=== PATIENT | female | born 1985 | race African-American/Black ===

== ENCOUNTER 2016-08-12 11:18 | Emergency (ER) | payer BC, MEDICARE ==
[~2016-08-12 11:18] MED LIST: ALPR1TAB6 PO; DESV100T PO; Doxycycline Hyclate PO; ESOM20CA PO; FLUT1DIS3 INH; HYDR1TAB12 PO; IBUP200T43 PO; PRED20TA PO; PROAIR HFA8.5 GM IH
[2016-08-12] MEDS ORDERED: PREDNISONE 10 MG TABLET PO ONE (13:15)
[2016-08-12] MEDS ORDERED: IPRATRPIUM/ALBUTEROL 0.5/2.5MG 3 ML NEBU. NEB ONE (13:15)
[2016-08-12] MEDS ORDERED: BENZONATATE 100 MG CAPSULE. PO ONE (13:15)
--- NOTE | 2016-08-12 13:19 | PHYS DOC ---
Past Medical History Past Medical History: Anxiety, Depression, GERD Additional Past Medical Histor: BRAIN TUMOR, seasonal allergies Past Surgical History: Other Additional Past Surgical Histo: D & C, brain surgery Alcohol Use: None Drug Use: None Adult General Chief Complaint Chief Complaint: SHORTNESS OF BREATH [facility] HPI Patient is a 31 year old female with history of asthma, anxiety, asthma, and depression who presents with cough and shortness of breath for the last 7-10 days. Patient denies any fever. Review of Systems Review of Systems Constitutional: See history of present illness Eyes: Denies change in visual acuity, redness, or eye pain [] HENT: nasal congestion Respiratory: Shortness of breath and cough Cardiovascular: No additional information not addressed in HPI [] GI: Denies abdominal pain, nausea, vomiting, bloody stools or diarrhea [] : Denies dysuria or hematuria [] Musculoskeletal: Denies back pain or joint pain [] Integument: Denies rash or skin lesions [] Neurologic: Denies headache, focal weakness or sensory changes [] Endocrine: Denies polyuria or polydipsia [] Current Medications Current Medications Current Medications Medications (Trade) Dose Ordered Sig/Camille Start Time Stop Time Status Last Admin Dose Admin Albuterol/ Ipratropium (Duoneb) 3 ml 1X ONCE 08/12/16 13:15 08/12/16 13:16 DC 08/12/16 13:15 3 ML Benzonatate (Tessalon Perle) 100 mg 1X ONCE 08/12/16 13:15 08/12/16 13:16 DC 08/12/16 13:25 100 MG Prednisone (Prednisone) 50 mg 1X ONCE 08/12/16 13:15 08/12/16 13:16 DC 08/12/16 13:24 50 MG Allergies Allergies Allergies Coded Allergies Type Severity Reaction Last Updated Verified sulfamethoxazole Allergy Intermediate vomiting 11/18/14 Yes trimethoprim Allergy Intermediate vomiting 11/18/14 Yes Physical Exam Physical Exam Constitutional: Well developed, well nourished, no acute distress, non-toxic appearance. [] HENT: Normocephalic, atraumatic, bilateral external ears normal, oropharynx moist, no oral exudates, nose normal. [] Eyes: PERRLA, EOMI, conjunctiva normal, no discharge. [] Neck: Normal range of motion, no tenderness, supple, no stridor. [] Cardiovascular:Heart rate regular rhythm, no murmur [] Lungs & Thorax: Bilateral breath sounds clear to auscultation [] Abdomen: Bowel sounds normal, soft, no tenderness, no masses, no pulsatile masses. [] Skin: Warm, dry, no erythema, no rash. [] Back: No tenderness, no CVA tenderness. [] Extremities: No tenderness, no cyanosis, no clubbing, ROM intact, no edema. [] Neurologic: Alert and oriented X 3, normal motor function, normal sensory function, no focal deficits noted. [] Psychologic: Affect normal, judgement normal, mood normal. [] Current Patient Data Vital Signs Vital Signs Date Time Temp Pulse Resp B/P Pulse Ox O2 Delivery O2 Flow Rate FiO2 08/12/16 13:50 96 Room Air 08/12/16 13:26 70 18 135/78 08/12/16 12:03 98.5 98.5 Lab Values Laboratory Tests Test 08/12/16 13:30 Influenza Type A Antigen Negative (NEGATIVE) Influenza Type B Antigen Negative (NEGATIVE) EKG EKG [] Radiology/Procedures Radiology/Procedures [] Course & Med Decision Making Course & Med Decision Making Pertinent Labs and Imaging studies reviewed. (See chart for details) Patient is in the ED complaining of cough or shortness of breath for 7-10 days. O2 sats 100% on room air. She does not appear short of air. Chest x-ray interpreted by radiologist is negative for any acute findings. Negative for influenza, patient's symptoms are viral bronchitis. Discharged with albuterol inhaler prednisone and Tessalon Perles. Follow-up with PCP in one week. Dragon Disclaimer Dragon Disclaimer This electronic medical record was generated, in whole or in part, using a voice recognition dictation system. Departure Departure Impression: Primary Impression: Acute bronchitis Additional Impression: Shortness of breath Disposition: 01 HOME, SELF-CARE Condition: STABLE Referrals: CARINA BRAVO MD (PCP) Follow-up with your doctor in one week Patient Instructions: Bronchitis, [id number] Additional Instructions: You were seen for bronchitis. Use the prescribed medicines as ordered. Follow- up with your doctor in one week, come back to the ED at any point symptoms worsen. Scripts Benzonatate (Tessalon Perle)100 Mg Capsule1 Cap PO TID #30 CAP Prov:MUTUNGA,FAUSTINO LEGAL RESEARCH ANALYST 08/12/16 Prednisone 50 Mg Tablet1 Tab PO DAILY #5 TAB Prov:FAUSTINO SHARP APRN 08/12/16 Albuterol Sulfate (Proair Respiclick)90 Mcg Aer.pow.ba1 Puff IH PRN Q6HRS PRN SHORTNESS OF BREATH #1 INHALER Prov:FAUSTINO SHARP APRN 08/12/16 Problem Qualifiers Primary Impression: Acute bronchitis Bronchitis organism: unspecified organism Qualified Code: J20.9 - Acute bronchitis, unspecified FAUSTINO SHARP APRN Aug 12, 2016 13:19
[2016-08-12 13:26] VITALS: BP 135/78
--- NOTE | 2016-08-12 13:56 | RAD ---
PA and lateral chest radiographs 08/12/2016. Clinical History: Cough for one week.. PA and lateral digital radiographs of the chest were obtained. Comparison study is dated 01/28/2015. The cardiac and mediastinal silhouettes are within normal limits in size and configuration. No pulmonary infiltrate is seen. No pleural effusion or pneumothorax is noted. The osseous structures are grossly intact. Impression: No radiographic evidence of active cardiopulmonary disease.
[2016-08-12 14:22] LABS: OBC FLU VALID
[2016-08-12] MEDS ORDERED: BENZ100C PO (14:39)
[2016-08-12] MEDS ORDERED: PRED50TA PO (14:39)
[2016-08-12] MEDS ORDERED: PROAIR RESPICL90 MCG IH (14:39)
== END 2016-08-12 14:52 | disposition home or self-care (01) ==
LOC: ER 11:18
DX: J20.9 Acute bronchitis, unspecified (principal); F32.9 Major depressive disorder, single episode, unspecified; J45.909 Unspecified asthma, uncomplicated; K21.9 Gastro-esophageal reflux disease without esophagitis; F41.9 Anxiety disorder, unspecified; Z88.2 Allergy status to sulfonamides; Z88.1 Allergy status to other antibiotic agents
CPT/HCPCS: 71020; 87804; 94640; 99285; J7512; J7620

== ENCOUNTER 2016-09-13 11:34 | Emergency (ER) | payer BC, MEDICARE ==
[~2016-09-13] VITALS: Ht 165.1 cm; Wt 102.1 kg
[~2016-09-13 11:34] MED LIST changes: +BENZ100C PO; +PRED50TA PO; +PROAIR RESPICL90 MCG IH
[2016-09-13 11:36] VITALS: BP 140/90
--- NOTE | 2016-09-13 12:26 | PHYS DOC ---
Past Medical History Past Medical History: Anxiety, Depression, GERD Additional Past Medical Histor: BRAIN TUMOR, seasonal allergies Past Surgical History: Other Additional Past Surgical Histo: D & C, brain surgery Alcohol Use: None Drug Use: None Adult General Chief Complaint Chief Complaint: SKIN PROBLEM [facility] HPI Patient is a 31 year old female presents emergency Department today complaining of a itching sensation to the bilateral palms of her hands and soles of her feet is been ongoing for the past 2 days. Patient denies any visual rashes. She denies any changes in any personal hygiene products. She is tried on the foot where socks or gloves. Patient denies history of diabetes or any type of neuropathic disease. Review of Systems Review of Systems Constitutional: Denies fever or chills [] Eyes: Denies change in visual acuity, redness, or eye pain [] HENT: Denies nasal congestion or sore throat [] Respiratory: Denies cough or shortness of breath [] Cardiovascular: No additional information not addressed in HPI [] GI: Denies abdominal pain, nausea, vomiting, bloody stools or diarrhea [] : Denies dysuria or hematuria [] Musculoskeletal: Denies back pain or joint pain [] Integument: Denies rash or skin lesions [] Neurologic: Denies headache, focal weakness or sensory changes [] Endocrine: Denies polyuria or polydipsia [] Allergies Allergies Allergies Coded Allergies Type Severity Reaction Last Updated Verified sulfamethoxazole Allergy Intermediate vomiting 09/13/16 Yes trimethoprim Allergy Intermediate vomiting 09/13/16 Yes Physical Exam Physical Exam Constitutional: Well developed, well nourished, no acute distress, non-toxic appearance. [] HENT: Normocephalic, atraumatic, bilateral external ears normal, oropharynx moist, no oral exudates, nose normal. [] Eyes: PERRLA, EOMI, conjunctiva normal, no discharge. [] Neck: Normal range of motion, no tenderness, supple, no stridor. [] Cardiovascular:Heart rate regular rhythm, no murmur [] Lungs & Thorax: Bilateral breath sounds clear to auscultation [] Abdomen: Bowel sounds normal, soft, no tenderness, no masses, no pulsatile masses. [] Skin: Patient's skin is normal in appearance. It is warm and dry. There are no skin lesions/abnormalities to the palms of her hands or soles of her feet are in no evidence of skin lesions or abnormalities to the other areas of her body as well. Back: No tenderness, no CVA tenderness. [] Extremities: No tenderness, no cyanosis, no clubbing, ROM intact, no edema. Bilateral upper and lower extremities are normal in appearance without dystrophic changes. Both upper lower extremities have strong, regular pulses. Neurologic: Alert and oriented X 3, normal motor function, normal sensory function, no focal deficits noted. [] Psychologic: Affect normal, judgement normal, mood normal. [] Current Patient Data Vital Signs Vital Signs Date Time Temp Pulse Resp B/P Pulse Ox O2 Delivery O2 Flow Rate FiO2 09/13/16 11:36 97.9 83 18 98 Room Air 97.9 Lab Values Laboratory Tests Test 09/13/16 12:25 Glucose (Fingerstick) 115mg/dL (70-99) H EKG EKG [] Radiology/Procedures Radiology/Procedures [] Course & Med Decision Making Course & Med Decision Making Random blood sugars 1:15. Patient shows no evidence of neuropathic cause for the pruritus that she is experiencing. I will place her on hydroxyzine to help with her symptoms and recommend that she follow up with her primary care doctor next week. Dragon Disclaimer Dragon Disclaimer This electronic medical record was generated, in whole or in part, using a voice recognition dictation system. Departure Departure Impression: Primary Impression: Generalized pruritus Disposition: 01 HOME, SELF-CARE Condition: GOOD Referrals: CARINA BRAVO MD (PCP) Patient Instructions: Pruritus Additional Instructions: 1. Your blood sugar here today is 115. This is not evidence of diabetes. 2. Review the discharge instructions provided for self-care and reasons to return to the emergency department. 3. Take the medication as prescribed. 4. Follow-up with your primary care doctor this next week for reevaluation. Scripts Hydroxyzine Hcl 25 Mg [id number] Mg PO TID #21 TAB Prov:ALYSSA QUILES 09/13/16 ALYSSA QUILES Sep 13, 2016 12:26
[2016-09-13] MEDS ORDERED: HYDR25TA PO (12:32)
== END 2016-09-13 12:38 | disposition home or self-care (01) ==
LOC: ER 11:34
DX: L29.9 Pruritus, unspecified (principal); F32.9 Major depressive disorder, single episode, unspecified; F41.9 Anxiety disorder, unspecified; K21.9 Gastro-esophageal reflux disease without esophagitis; Z88.2 Allergy status to sulfonamides; Z88.8 Allergy status to other drugs, medicaments and biological substances
CPT/HCPCS: 82962; 99282; 99283

== ENCOUNTER → 2016-09-17 | Outpatient (CLI) | payer BC, MEDICARE ==
[2016-09-13 11:36] VITALS: BP 140/90
[~2016-09-17] MED LIST changes: +HYDR25TA PO
[2016-09-17 16:55] LABS: CALCIUM 9.1 mg/dL (8.5-10.1); GFR 78.2; POTASSIUM 3.9 mmol/L (3.5-5.1)
== END | disposition home or self-care (01) ==
LOC: LAB 15:13
PROVIDERS: ATTEND Family Medicine
DX: R73.09 Other abnormal glucose (principal)
CPT/HCPCS: 36415; 80048; 83036

== ENCOUNTER → 2017-01-22 | Outpatient (CLI) | payer BC, MEDICARE ==
--- NOTE | 2017-01-24 15:18 | SLEEP ---
DATE OF STUDY: 01/22/2017 HOME SLEEP STUDY ATTENDING PHYSICIAN: Dr. Kayla Ascencio. The patient is 31 years old who weighs 210 pounds with a BMI of 34.9. The patient's [place] score was 11. Home sleep study was performed by [facility]. The total recording time was 487 minutes. During the night study, the patient had no central apneas, 4 obstructive apneas and 36 mixed apneas. There were 103 hypopneas. The patient's apnea hypopnea index was 18 per hour, supine index 27.5 per hour. Review of nocturnal oximetry study revealed an average oxygen saturation of 94% with the lowest of 80%. minutes were spent in oxygen saturation less than 90%. Mean heart rate was 82 beats per minute. IMPRESSION: 1. Moderate sleep apnea-hypopnea syndrome with an AHI of 18 per hour. 2. Nocturnal hypoxia secondary to obstructive sleep apnea. RECOMMENDATIONS: 1. The patient would benefit from an in-lab CPAP titration study. Alternate treatment option would include oral appliance. 2. If the patient undergoes CPAP titration then she should be followed up in 4-6 weeks to assess compliance with CPAP and to document clinical improvement. 3. Weight loss is strongly advised. 4. Avoid SAP TECHNICAL DEVELOPER depressants. 5. Caution regarding driving until symptoms of sleep apnea resolve with the above recommendation. ÓSCAR REINA MD DR: NARCISO/olga lidia JOB#: [id number] / [id number] [facility] KAYLA ASCENCIO MD MTDD
== END | disposition home or self-care (01) ==
LOC: RT 10:50
PROVIDERS: ATTEND Family Medicine
DX: G47.33 Obstructive sleep apnea (adult) (pediatric) (principal); R09.02 Hypoxemia
CPT/HCPCS: G0399

== ENCOUNTER 2017-10-06 15:38 | Emergency (ER) | payer BC, MEDICARE ==
[2017-10-06 16:54] LABS: URINE HCG POC HCG NEGATIVE (Negative)
[2017-10-06 17:30] LABS: BILIRUBIN,URINE SMALL (NEG); CLARITY,URINE CLOUDY; COLOR,URINE AMBER; GLUCOSE,URINE NEGATIVE (NEG); NITRITE,URINE NEGATIVE (NEG); PROTEIN,URINE 30 mg/dL (NEG-TRACE)
[2017-10-06 17:32] LABS: ADD MAN DIFF? NO
[2017-10-06 17:34] LABS: BASO % 1 % (0-3); EOS % 0 % (0-3); HEMATOCRIT 36.5 % (36.0-47.0); LYMPH # 1.8 x10^3/uL (1.0-4.8); LYMPH % 37 % (24-48); MEAN CORPUSCULAR HEMOGLOBIN 27 pg (25-35); MEAN CORPUSCULAR HGB CONC 33 g/dL (31-37); MEAN CORPUSCULAR VOLUME 83 fL (79-100); MONO # 0.4 x10^3/uL (0.0-1.1); MONO % 8 % (0-9); NEUT # 2.7 x10^3uL (1.8-7.7); NEUT % 54 % (31-73); PLATELET COUNT 180 x10^3/uL (140-400); RED BLOOD COUNT 4.42 x10^6/uL (3.50-5.40); RED CELL DISTRIBUTION WIDTH 15.8 % (11.5-14.5); WHITE BLOOD COUNT 4.9 x10^3/uL (4.0-11.0)
[2017-10-06 17:37] LABS: BACTERIA,URINE MANY /HPF (0-FEW); SQUAMOUS EPITHELIAL CELL,UR MOD /LPF; TRICHOMONAS,URINE PRESENT
[2017-10-06 17:41] LABS: ANION GAP 10 (6-14); BLOOD UREA NITROGEN 9 mg/dL (7-20); BUN/CREATININE RATIO 10 (6-20); CALCIUM 9.1 mg/dL (8.5-10.1); CARBON DIOXIDE 26 mmol/L (21-32); CHLORIDE 103 mmol/L (98-107); CREATININE 0.9 mg/dL (0.6-1.0); GFR 87.8; GLUCOSE 88 mg/dL (70-99); POTASSIUM 4.6 mmol/L (3.5-5.1); SODIUM 139 mmol/L (136-145)
[2017-10-06 17:47] LABS: ALBUMIN 3.7 g/dL (3.4-5.0); ALBUMIN/GLOBULIN RATIO 0.9 (1.0-1.7); ALK PHOS 70 U/L (46-116); ALT (SGPT) 24 U/L (14-59); AST (SGOT) 22 U/L (15-37); TOTAL BILIRUBIN 0.5 mg/dL (0.2-1.0)
[2017-10-08 14:35] LABS: CHLAMYDIA PROBE Negative (Negative); GC PROBE Negative (Negative)
== END 2017-10-06 20:14 | disposition home or self-care (01) ==
LOC: ER 15:38
DX: N30.00 Acute cystitis without hematuria (principal); F32.9 Major depressive disorder, single episode, unspecified; F41.9 Anxiety disorder, unspecified; K21.9 Gastro-esophageal reflux disease without esophagitis; Z88.2 Allergy status to sulfonamides; Z88.1 Allergy status to other antibiotic agents
CPT/HCPCS: 36415; 76856; 80053; 81001; 81025; 85025; 87086; 87491; 87591; 99285-25; Q0111

== ENCOUNTER 2019-07-12 08:28 | Emergency (ER) | payer BC, MEDICARE ==
[~2019-07-12] VITALS: Ht 167.6 cm; Wt 102.0 kg
[~2019-07-12 08:28] MED LIST changes: +ALBU2.5V8 IH; -HYDR1TAB12 PO; +HYDR1TAB13 PO; -IBUP200T43 PO; +IBUP200T44 PO; +METR500T PO; -PROAIR HFA8.5 GM IH; +SULF1TAB23 PO
[2019-07-12 08:57] VITALS: BP 172/101
[2019-07-12] MEDS ORDERED: DEXAMETHASONE 4 MG TABLET PO STA (09:24)
--- NOTE | 2019-07-12 09:29 | PHYS DOC ---
Past Medical History Past Medical History: Unknown Additional Past Medical Histor: BRAIN TUMOR IN 2012 Past Surgical History: Other Additional Past Surgical Histo: D & C, brain surgery Alcohol Use: Rarely Drug Use: None Adult General Chief Complaint Chief Complaint: FLU SYMPTOM HPI HPI Patient is a 34 year old female who presents with fever, loss of appetite, body aches, sore throat, runny nose, cough, and diarrhea that started three days ago. Patient has been able to drink water at home. Patient has been using Tylenol for fever control. Complete ROS were reviewed and found to be within normal limits, except as documented in the HPI Allergies Allergies Allergies Coded Allergies Type Severity Reaction Last Updated Verified sulfamethoxazole Allergy Intermediate vomiting 09/13/16 Yes trimethoprim Allergy Intermediate vomiting 09/13/16 Yes Physical Exam Physical Exam Constitutional: Well developed, well nourished, no acute distress, non-toxic appearance. [] HENT: Normocephalic, atraumatic, bilateral external ears normal, bilateral tympanic membranes are pearly mcnair, oropharynx moist, no oral exudates, nose turbinates are inflamed. Eyes: PERRLA, EOMI, conjunctiva normal, no discharge. [] Neck: Normal range of motion, no tenderness, supple, no stridor. [] Cardiovascular:Heart rate regular rhythm, no murmur [] Lungs & Thorax: Bilateral breath sounds clear to auscultation [] Abdomen: Bowel sounds normal, soft, no tenderness, no masses, no pulsatile m asses. [] Skin: Warm, dry, no erythema, no rash. [] Neurologic: Alert and oriented X 3, normal motor function, normal sensory function, no focal deficits noted. [] Psychologic: Affect normal, judgement normal, mood normal. [] Current Patient Data Vital Signs Vital Signs Date Time Temp Pulse Resp B/P (MAP) Pulse Ox O2 Delivery O2 Flow Rate FiO2 07/12/19 08:57 98.0 92 20 172/101 (124) 100 Room Air 98.0 EKG EKG [] Radiology/Procedures Radiology/Procedures [] Course & Med Decision Making Course & Med Decision Making Pertinent Labs and Imaging studies reviewed. (See chart for details) The patient appears to have the Flu clinically. Discussed with patient the importance of drinking plenty of fluids. I also discussed the importance of res t. It was discussed with the patient that she is contagious and to stay away from others until it has been a week since the start of her symptoms. Discussed with the patient that she can take Zyrtec per label instructions for runny nose. Also discussed the proper control of fever by rotating Tylenol and Ibuprofen at home. Will give the patient Decadron in the ER for symptom control. Dragon Disclaimer Dragon Disclaimer This electronic medical record was generated, in whole or in part, using a voice recognition dictation system. Departure Departure Impression: Primary Impression: Viral syndrome Disposition: 01 HOME, SELF-CARE Condition: STABLE Referrals: CARINA BRAVO MD (PCP) Patient Instructions: Influenza A (H1N1) Additional Instructions: Thank you for visiting [facility]. We appreciate you trusting us with your care. If any additional problems come up don't hesitate to return to visit us. Please follow up with your primary care provider so they can plan additional care if needed and know about the problem that you had. If symptoms worsen come back to the Emergency Department. Any concerning symptoms that start such as chest pain, shortness of air, weakness or numbness on one side of the body, running high fevers or any other concerning symptoms return to the ER. Please drink plenty of fluids. If unable to keep fluids down please return to ER. Please get Tylenol and Ibuprofen over the counter. Give each medication every 6 hours as directed by the medication labels. In order to utilize the peak of the medications stagger the medications to where the child is getting one of the medications every 3 hours. For example if you give Ibuprofen at 3 PM, you then give Tylenol at 6 PM and Ibuprofen again at 9 PM, and then Tylenol at midnight. Please get Zyrtec over the counter and take per label instructions for runny nose. LEONARDO SAUER APRN Jul 12, 2019 09:29
== END 2019-07-12 09:41 | disposition home or self-care (01) ==
LOC: ER 08:28
DX: B34.9 Viral infection, unspecified (principal); R50.9 Fever, unspecified; R09.89 Other specified symptoms and signs involving the circulatory and respiratory systems; R05 Cough; R19.7 Diarrhea, unspecified; R63.0 Anorexia; Z98.890 Other specified postprocedural states; Z88.2 Allergy status to sulfonamides
CPT/HCPCS: 99282; J8540

== ENCOUNTER 2019-07-13 11:47 | Emergency (ER) | payer BC, MEDICARE ==
[~2019-07-13] VITALS: Ht 165.1 cm; Wt 104.0 kg
--- NOTE | 2019-07-13 12:12 | PHYS DOC ---
Past Medical History Past Medical History: Unknown Additional Past Medical Histor: BRAIN TUMOR IN 2012 Past Surgical History: Other Additional Past Surgical Histo: D & C, brain surgery Alcohol Use: Rarely Drug Use: None Adult General Chief Complaint Chief Complaint: HYPERTENSION HPI HPI Patient is a 34 year old female who presents with blood pressure in the 160's. The patient had checked her blood pressure at home. She was diagnosed with the flu yesterday and continues to have flu symptoms. No additional new symptoms. She has an appointment with primary care tomorrow. Complete ROS were reviewed and found to be within normal limits, except as documented in the HPI Allergies Allergies Allergies Coded Allergies Type Severity Reaction Last Updated Verified sulfamethoxazole Allergy Intermediate vomiting 09/13/16 Yes trimethoprim Allergy Intermediate vomiting 09/13/16 Yes Physical Exam Physical Exam Constitutional: Well developed, well nourished, no acute distress, non-toxic appearance. [] HENT: Normocephalic, atraumatic, bilateral external ears normal, oropharynx moist, no oral exudates, nose normal. [] Eyes: PERRLA, EOMI, conjunctiva normal, no discharge. [] Neck: Normal range of motion, no tenderness, supple, no stridor. [] Cardiovascular:Heart rate regular rhythm, no murmur [] Lungs & Thorax: Bilateral breath sounds clear to auscultation [] Abdomen: Bowel sounds normal, soft, no tenderness, no masses, no pulsatile masses. [] Skin: Warm, dry, no erythema, no rash. [] Neurologic: Alert and oriented X 3, normal motor function, normal sensory function, no focal deficits noted. [] Psychologic: Affect normal, judgement normal, mood normal. [] EKG EKG [] Radiology/Procedures Radiology/Procedures [] Course & Med Decision Making Course & Med Decision Making Pertinent Labs and Imaging studies reviewed. (See chart for details) Patient blood pressure is not emergent at this time. Will d/c home to have follow up with primary care. Dragon Disclaimer Dragon Disclaimer This electronic medical record was generated, in whole or in part, using a voice recognition dictation system. Departure Departure Impression: Primary Impression: Hypertension Disposition: HOME, SELF-CARE Condition: STABLE Referrals: CARINA BRAVO MD (PCP) Patient Instructions: Hypertension Additional Instructions: Thank you for visiting [facility]. We appreciate you trusting us with your care. If any additional problems come up don't hesitate to return to v isit us. Please follow up with your primary care provider so they can plan additional care if needed and know about the problem that you had. If symptoms worsen come back to the Emergency Department. Any concerning symptoms that start such as chest pain, shortness of air, weakness or numbness on one side of the body, running high fevers or any other concerning symptoms return to the ER. Problem Qualifiers Primary Impression: Hypertension Hypertension type: unspecified Qualified Codes: I10 - Essential (primary) hypertension LEONARDO SAUER APRN Jul 13, 2019 12:12
[2019-07-13 12:26] VITALS: BP 157/96
== END 2019-07-13 12:26 | disposition home or self-care (01) ==
LOC: ER 11:47
DX: I10 Essential (primary) hypertension (principal); Z98.890 Other specified postprocedural states; Z88.2 Allergy status to sulfonamides
CPT/HCPCS: 99281

== ENCOUNTER 2021-04-10 15:52 | Emergency (ER) | payer BC, OTHER ==
[~2021-04-10] VITALS: Ht 170.2 cm; Wt 100.4 kg
[2021-04-10 16:50] VITALS: BP 149/89
--- NOTE | 2021-04-10 17:05 | PHYS DOC ---
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 Patient states yesterday patient had an episode confusion with left arm spasm, patient states she called her sister who is an RN her sister told her to relax patient states she checked her blood pressure it was elevated unsure of the numbers, patient states today she went to her primary care office today had labs drawn had another episode today of right arm and right leg spasm and presented here to the emergency department for evaluation. Patient does have a history of a tumor resection in [address] [facility] she states she had 1 seizure following that surgery and is on an unknown medication at night for seizures. Patient states that in 2011 she also had a tumor resection as well. Review of Systems: Review of Systems: Constitutional: Denies fever or chills. [] Eyes: Denies change in visual acuity. [] HENT: Denies nasal congestion or sore throat. [] Respiratory: Denies cough or shortness of breath. [] Cardiovascular: Denies chest pain or edema. [] GI: Denies abdominal pain, nausea, vomiting, bloody stools or diarrhea. [] : Denies dysuria. [] Musculoskeletal: Denies back pain or joint pain. [] Integument: Denies rash. [] Neurologic: Left arm and left leg spasm, left sided headache Endocrine: Denies polyuria or polydipsia. [] Lymphatic: Denies swollen glands. [] Psychiatric: Denies depression or anxiety. [] Heart Score: C/O Chest Pain: N/A Risk Factors: Risk Factors: DM, Current or recent (<one month) smoker, HTN, HLP, family history of CAD, obesity. Risk Scores: Score 0 - 3: 2.5% MACE over next 6 weeks - Discharge Home Score 4 - 6: 20.3% MACE over next 6 weeks - Admit for Clinical Observation Score 7 - 10: 72.7% MACE over next 6 weeks - Early Invasive Strategies Allergies: Allergies: Allergies Coded Allergies Type Severity Reaction Last Updated Verified sulfamethoxazole Allergy Intermediate vomiting 4/7/17 Yes trimethoprim Allergy Intermediate vomiting 09/13/16 Yes Physical Exam: PE: Constitutional: Well developed, well nourished, no acute distress, non-toxic appearance. [] HENT: Normocephalic, atraumatic, bilateral external ears normal, oropharynx moist, no oral exudates, nose normal. [] Eyes: PERRLA, EOMI, conjunctiva normal, no discharge. [] Neck: Normal range of motion, no tenderness, supple, no stridor. [] Cardiovascular:Heart rate regular rhythm, no murmur [] Lungs & Thorax: Bilateral breath sounds clear to auscultation [] Abdomen: Bowel sounds normal, soft, no tenderness, no masses, no pulsatile masses. [] Skin: Warm, dry, no erythema, no rash. [] Back: No tenderness, no CVA tenderness. [] Extremities: No tenderness, no cyanosis, no clubbing, ROM intact, no edema. [] Neurologic: Alert and oriented X 3, normal motor function, normal sensory function, no focal deficits noted, Psychologic: Affect normal, judgment normal, mood normal. [] Current Patient Data: Labs: Laboratory Tests Test 04/10/21 16:45 04/10/21 16:56 White Blood Count 5.1 x10^3/uL Red Blood Count 4.47 x10^6/uL Hemoglobin 11.0 g/dL Hematocrit 35.2 % Mean Corpuscular Volume 79 fL Mean Corpuscular Hemoglobin 25 pg Mean Corpuscular Hemoglobin Concent 31 g/dL Red Cell Distribution Width 17.0 % Platelet Count 223 x10^3/uL Neutrophils (%) (Auto) 58 % Lymphocytes (%) (Auto) 35 % Monocytes (%) (Auto) 7 % Eosinophils (%) (Auto) 0 % Basophils (%) (Auto) 0 % Neutrophils # (Auto) 2.9 x10^3/uL Lymphocytes # (Auto) 1.8 x10^3/uL Monocytes # (Auto) 0.3 x10^3/uL Eosinophils # (Auto) 0.0 x10^3/uL Basophils # (Auto) 0.0 x10^3/uL Platelet Estimate Adequate Large Platelets Present Polychromasia Present Hypochromasia Slight Poikilocytosis Slight Anisocytosis Macrocytosis Tear Drop Cells Occ Ovalocytes Occ Sodium Level 139 mmol/L Potassium Level 3.5 mmol/L Chloride Level 103 mmol/L Carbon Dioxide Level 23 mmol/L Anion Gap 13 Blood Urea Nitrogen 10 mg/dL Creatinine 1.0 mg/dL Estimated GFR (Cockcroft-Gault) 76.3 BUN/Creatinine Ratio 10 Glucose Level 77 mg/dL Calcium Level 9.2 mg/dL Magnesium Level 2.1 mg/dL Total Bilirubin 0.4 mg/dL Aspartate Amino Transf (AST/SGOT) 15 U/L Alanine Aminotransferase (ALT/SGPT) 24 U/L Alkaline Phosphatase 78 U/L Total Protein 8.3 g/dL Albumin 4.2 g/dL Albumin/Globulin Ratio 1.0 Bedside Urine HCG, Qualitative Hcg negative Vital Signs: Vital Signs Date Time Temp Pulse Resp B/P (MAP) Pulse Ox O2 Delivery O2 Flow Rate FiO2 04/10/21 16:50 78 149/89 (109) 100 Room Air 04/10/21 16:34 97.6 76 20 148/88 (108) 100 Room Air 97.6 Vital Signs Date Time Temp Pulse Resp B/P (MAP) Pulse Ox O2 Delivery O2 Flow Rate FiO2 04/10/21 16:34 97.6 76 20 148/88 (108) 100 Room Air 97.6 Vital Signs Date Time Temp Pulse Resp B/P (MAP) Pulse Ox O2 Delivery O2 Flow Rate FiO2 04/10/21 16:34 97.6 76 20 148/88 (108) 100 Room Air 97.6 EKG: EKG: [] Radiology/Procedures: Radiology/Procedures: REASON: seizure activity, tumor resection in past PROCEDURE: CT HEAD WO CONTRAST Exam: CT head INDICATION: Seizure activity TECHNIQUE: Sequential axial images through the head were obtained without the administration of IV contrast. Exposure: One or more of the following in the visualized dose reduction techniques were utilized for this examination: 1. Automated exposure control 2. Adjustment of the MA and/or KV according to patient size 3. Use of iterative of reconstructive technique Comparisons: None FINDINGS: Left parietal occipital craniotomy changes are noted. Mild underlying encephalomalacia noted. No focal parenchymal lesion or hemorrhage is identified. There is no midline shift or sulcal effacement. No acute vascular territory infarction is identified. [place]-white distinction is preserved. The ventricular system is within normal limits without compression hydrocephalus. The basal cisterns are well maintained. The visualized portions of the paranasal sinuses and mastoid air cells are well- pneumatized. No acute fractures. IMPRESSION: No acute intracranial abnormality. Electronically signed by: Keanu Cormier MD (04/10/2021 5:28 PM) [facility] [] Laboratory Tests Test 04/10/21 16:45 04/10/21 16:56 White Blood Count 5.1 x10^3/uL Red Blood Count 4.47 x10^6/uL Hemoglobin 11.0 g/dL Hematocrit 35.2 % Mean Corpuscular Volume 79 fL Mean Corpuscular Hemoglobin 25 pg Mean Corpuscular Hemoglobin Concent 31 g/dL Red Cell Distribution Width 17.0 % Platelet Count 223 x10^3/uL Neutrophils (%) (Auto) 58 % Lymphocytes (%) (Auto) 35 % Monocytes (%) (Auto) 7 % Eosinophils (%) (Auto) 0 % Basophils (%) (Auto) 0 % Neutrophils # (Auto) 2.9 x10^3/uL Lymphocytes # (Auto) 1.8 x10^3/uL Monocytes # (Auto) 0.3 x10^3/uL Eosinophils # (Auto) 0.0 x10^3/uL Basophils # (Auto) 0.0 x10^3/uL Platelet Estimate Pending Sodium Level 139 mmol/L Potassium Level 3.5 mmol/L Chloride Level 103 mmol/L Carbon Dioxide Level 23 mmol/L Anion Gap 13 Blood Urea Nitrogen 10 mg/dL Creatinine 1.0 mg/dL Estimated GFR (Cockcroft-Gault) 76.3 BUN/Creatinine Ratio 10 Glucose Level 77 mg/dL Calcium Level 9.2 mg/dL Magnesium Level 2.1 mg/dL Total Bilirubin 0.4 mg/dL Aspartate Amino Transf (AST/SGOT) 15 U/L Alanine Aminotransferase (ALT/SGPT) 24 U/L Alkaline Phosphatase 78 U/L Total Protein 8.3 g/dL Albumin 4.2 g/dL Albumin/Globulin Ratio 1.0 Bedside Urine HCG, Qualitative Hcg negative Course & Med Decision Making: Course & Med Decision Making Pertinent Labs and Imaging studies reviewed. (See chart for details) 1800 spoke to patient and sister who is on a phone call about lab results and CT scan results, did discuss with patient and sister that I feel like patient is having focal seizures without impairment to consciousness. Patient does have a neurologist headache specialist appointment on at the [facility], spoke to patient about options for admission here at [facility], calling the [facility] for admission there and going home with strict instructions to return if patient has a full body seizure, loss of bowel or bladder control with a loss of consciousness, or patient feels unsafe at home at this time. Patient is requesting to go home to follow-up with her neurologist at the [facility], patient states she is currently staying with sister and is not staying alone. Patient is instructed to continue medications as previously directed, and follow-up on with her neurologist, Dr. Church. [] Dragon Disclaimer: Dragon Disclaimer: This electronic medical record was generated, in whole or in part, using a voice recognition dictation system. Departure Departure Impression: Primary Impression: Focal seizure Disposition: HOME / SELF CARE / HOMELESS Condition: STABLE Referrals: CARINA BRAVO MD (PCP) Patient Instructions: Seizure, Adult Additional Instructions: Continue current medications as directed Follow-up with Dr. Church at the [facility] as previously scheduled on April 12 Return to the emergency department if you have a full body seizure, lose consciousness and wake up with loss of bowel or bladder control, or if you feel like you are not safe at home please return. JARAD JACKSON APRN Apr 10, 2021 17:05
[2021-04-10 17:11] LABS: BASO % 0 % (0-3); EOS % 0 % (0-3); HEMATOCRIT 35.2 % (36.0-47.0); LYMPH # 1.8 x10^3/uL (1.0-4.8); LYMPH % 35 % (24-48); MEAN CORPUSCULAR HEMOGLOBIN 25 pg (25-35); MEAN CORPUSCULAR HGB CONC 31 g/dL (31-37); MEAN CORPUSCULAR VOLUME 79 fL (79-100); MONO # 0.3 x10^3/uL (0.0-1.1); MONO % 7 % (0-9); NEUT # 2.9 x10^3/uL (1.8-7.7); NEUT % 58 % (31-73); PLATELET COUNT 223 x10^3/uL (140-400); RED BLOOD COUNT 4.47 x10^6/uL (3.50-5.40); WHITE BLOOD COUNT 5.1 x10^3/uL (4.0-11.0)
[2021-04-10 17:18] LABS: CALCIUM 9.2 mg/dL (8.5-10.1); GFR 76.3; POTASSIUM 3.5 mmol/L (3.5-5.1)
[2021-04-10 17:23] LABS: ALBUMIN 4.2 g/dL (3.4-5.0); MAGNESIUM 2.1 mg/dL (1.8-2.4); TOTAL BILIRUBIN 0.4 mg/dL (0.2-1.0); TOTAL PROTEIN 8.3 g/dL (6.4-8.2)
--- NOTE | 2021-04-10 17:30 | RAD ---
Exam: CT head INDICATION: Seizure activity TECHNIQUE: Sequential axial images through the head were obtained without the administration of IV co ntrast. Exposure: One or more of the following in the visualized dose reduction techniques were utilized for this examination: 1. Automated exposure control 2. Adjustment of the MA and/or KV according to patient size 3. Use of iterative of reconstructive technique Comparisons: None FINDINGS: Left parietal occipital craniotomy changes are noted. Mild underlying encephalomalacia noted. No focal parenchymal lesion or hemorrhage is identified. There is no midline shift or sulcal effaceme nt. No acute vascular territory infarction is identified. [place]-white distinction is preserved. The ventricular system is within normal limits without compression hydrocephalus. The basal cisterns are well maintained. The visualized portions of the paranasal sinuses and mastoid air cells are well-pneumatized. No acute fractures. IMPRESSION: No acute intracranial abnormality. Electronically signed by: Keanu Cormier MD (04/10/2021 5:28 PM) [facility]
[2021-04-10 17:49] LABS: PLT ESTIMATE ADEQUATE (ADEQUATE)
[2021-04-10 17:50] LABS: HYPOCHROMIA SLIGHT; OVALOCYTES OCC; POIKILOCYTOSIS SLIGHT; POLYCHROMASIA PRESENT
[2021-04-10 17:52] LABS: TEAR DROP CELLS OCC
== END 2021-04-10 18:40 | disposition home or self-care (01) ==
LOC: ER 15:52
DX: R56.9 Unspecified convulsions (principal); Z88.1 Allergy status to other antibiotic agents; Z88.2 Allergy status to sulfonamides
CPT/HCPCS: 36415; 70450; 80053; 81025; 83735; 85025; 99284-25